=== PATIENT | male | born 1965 | race Caucasian/White ===

== ENCOUNTER 2024-08-16 08:53 | Outpatient (CLI) | payer OTHER, SELFPAY ==
[2024-08-16 09:04] LABS: Basophils Absolute Auto 0.09 K/mm3 (0.00-0.10); Basophils Percent Auto 1.8 % (0.0-1.0); Eosinophils Absolute Auto 0.11 K/mm3 (0.02-0.50); Eosinophils Percent Auto 2.2 % (1.0-6.0); Hematocrit 43.9 % (40.0-54.0); Hemoglobin 14.7 g/dL (14.0-18.0); Immature Granulocyte Absolute 0.01 K/mm3 (0.00-0.00); Immature Granulocyte Percent A 0.2 % (0.0-0.0); Lymphocytes Absolute Auto 1.28 K/mm3 (1.10-4.50); Lymphocytes Percent Auto 25.9 % (18.0-42.0); Mean Corpuscular HGB Conc 33.5 g/dL (32-36); Mean Corpuscular Hemoglobin 31.5 pg (27.0-31.0); Mean Corpuscular Volume 94.2 fL (78.0-102.0); Mean Platelet Volume 10.3 fl (8.7-11.0); Monocytes Absolute Auto 0.59 K/mm3 (0.10-0.90); Monocytes Percent Auto 11.9 % (2.0-11.0); Neutrophils Absolute Auto 2.87 K/mm3 (1.70-7.20); Platelet Count Result 167 K/mm3 (150-420); Red Blood Count 4.66 M/mm3 (4.70-6.10); Red Cell Distribution Width 12.3 % (11.6-14.4)
[2024-08-16 09:45] LABS: Alanine Aminotransferase 33 U/L (16-63); Albumin Level 3.7 g/dL (3.4-5.0); Alkaline Phosphatase 83 U/L (46-116); Anion Gap 5 mmol/L (4-12); Aspartate Amino Transferase 20 U/L (15-37); Bilirubin,Total 0.6 mg/dL (0.00-1.00); Blood Urea Nitrogen 18 mg/dL (7-18); Calcium 8.8 mg/dL (8.5-10.1); Carbon Dioxide 32 mmol/L (21-32); Chloride 106 mmol/L (98-108); Cholesterol 175 mg/dL (0-200); Estimated Glomerular Filt Rate > 60; Glucose 96 mg/dL (70-99); HDL Direct 65 mg/dL (40-60); LDL Cholesterol Calculated 88 mg/dL (<130); Osmolality Calculated 297 mOsm/kg (285-295); Potassium 4.3 mmol/L (3.5-5.1); Sodium 143 mmol/L (136-145); Total Protein 6.7 g/dL (6.4-8.2); Triglycerides 110 mg/dL (0-150)
[2024-08-16 10:10] LABS: Thyroid Stimulating Hormone Reflex 1.88 u/IU/mL (0.36-3.74)
== END 2024-08-16 08:54 | disposition home or self-care (01) ==
PROVIDERS: PCP Family Medicine; Visit Provider Family Medicine
DX: Z00.00 Encounter for general adult medical examination without abnormal findings (principal); E03.9 Hypothyroidism, unspecified
CPT/HCPCS: 36415; 80053; 80061; 84443; 85025

== ENCOUNTER 2024-09-18 12:45 | Outpatient (NON) | payer OTHER, SELFPAY | END 2024-09-18 12:46 | disposition home or self-care (01) | PROVIDERS: Visit Provider Family Medicine | DX: L82.1 Other seborrheic keratosis (principal) | CPT/HCPCS: 88305 ==

== ENCOUNTER 2024-10-04 01:22 | Day surgery (SDC) | payer OTHER, SELFPAY ==
[2024-09-24 13:16] VITALS: BMI 25.6
[2024-10-04 06:41] VITALS: BP 132/82; PULSE 72; RESP 16; TEMP 36.4; O2SAT 100
[2024-10-04] MEDS: LACTATED RINGERS 1,000 ML 150 ML IV CONT (06:49)
--- NOTE | 2024-10-04 07:30 | P.PNAN_ITS ---
Anes - Initial Pre Proc Eval Procedure: Operation Date: 10/04/24 08:00 Proposed Procedures p Screening Colonoscopy - Denver Wagoner DO Date/Time: 10/04/24 07:30 Surgeon: Denver Wagoner DO Pre Op Diagnosis: screening for malignant neoplasm of colon Patient Data Age: 59 Gender: M Height: 1.91 m Weight: 91.8 kg Last Vital Signs Temp 36.4 C L 10/04/24 06:41 Pulse 72 10/04/24 06:41 Resp 16 10/04/24 06:41 BP 132/82 10/04/24 06:41 Pulse Ox 100 10/04/24 06:41 O2 Del Method Room Air 10/04/24 06:41 Allergies Allergy/AdvReac Type Severity Reaction Status Date / Time Penicillins Allergy Mild Hives Verified 09/24/24 13:15 Home Medications ?Medication ?Instructions ?Recorded ?Confirmed ?Type No Home Medications 08/16/24 09/24/24 History Patient hx anesthesia problems: none Family hx anesthesia problems: none Results Review: All pre-operative results and documents have been reviewed as part of the pre- operative evaluation. FOR[facility]LY [facility], [facility] Surgical History Surgical History (Updated 10/04/24 @ 07:30 by Efren Vanessa MD) H/O colonoscopy Family History Family History Father Lung cancer Grandparent Heart attack Grandparent Cerebrovascular accident Social History Social History Smoking status: Never smoker Tobacco type: smokeless tobacco Smokeless tobacco user: chewing tobacco Alcohol intake: current Substance use: never Substance use type: does not use Do You Feel Safe in your Home?: Yes Lack of Transportation: No Lack of Food: Never True Current Housing: I Have Housing Concerned About Future Housing: No Difficulty Paying Gas/Electric Bills: No Difficulty Paying for Meds: No Currently Unemployed: No Education: Bachelor's Degree Difficulty w/ Childcare or Family Care: No Anes - Eval Final PreProcedure Day of Procedure 10/04/24 07:30 Patient weight: normal Heart: regular rate and rhythm Lungs: clear to auscultation Airway: Mallampati scale class II Neurological: alert and oriented Last oral intake: >/= 8 hours ASA classification: I Emergent: no Anesthetic plan: proceed Anesthesia type and monitoring: general GIVS and standard monitoring Results Review: All pre-operative results and documents have been reviewed as part of the pre- operative evaluation. Informed Consent: The patient's anesthetic plan and its attendant risks and benefits were discussed with the patient/family/POA. Questions were solicited and answers provided to the satisfaction of the patient/family/POA.
--- NOTE | 2024-10-04 07:47 | PM.IMHP ---
H&P: HPI History of Present Illness Date/Time: 10/04/24 07:47 Chief Complaint: Screening for colorectal cancer Narrative: this is a 59-year-old man who presents for colonoscopy. His last colonoscopy was 10 years ago and was normal. He denies any hematochezia or melena. He denies any family history of colon cancer. Review of Systems Review of Systems: All systems reviewed & are unremarkable except as noted in HPI and below Constitutional: Constitutional: Denies chills, Denies fever(s), Denies headache(s) and Denies weight loss Eyes: Eyes: Denies change in vision ENT: Denies dizziness, Denies headache(s), Denies neck mass and Denies throat swelling Cardiovascular: Cardiovascular: Denies chest pain, Denies lightheadedness and Denies dyspnea Respiratory: Respiratory: Denies cough, Denies dyspnea and Denies wheezing Gastrointestinal: Gastrointestinal: Denies abdominal pain, Denies change in bowel habits, Denies nausea and Denies vomiting Genitourinary: Genitourinary: Denies hematuria and Denies dysuria Musculoskeletal: Musculoskeletal: Reports as per HPI Integumentary/Breasts: Skin/Breast: Reports as per HPI Neurologic: Denies dizziness and Denies headache(s) Allergic/Immunologic: Allergic/Immunologic: Denies throat swelling and Denies wheezing PMF Surgical History Surgical History (Updated 10/04/24 @ 07:30 by Efren Vanessa MD) H/O colonoscopy Family History Family History Father Lung cancer Grandparent Heart attack Grandparent Cerebrovascular accident Social History Social History Smoking status: Never smoker Tobacco type: smokeless tobacco Smokeless tobacco user: chewing tobacco Alcohol intake: current Substance use: never Substance use type: does not use Do You Feel Safe in your Home?: Yes Lack of Transportation: No Lack of Food: Never True Current Housing: I Have Housing Concerned About Future Housing: No Difficulty Paying Gas/Electric Bills: No Difficulty Paying for Meds: No Currently Unemployed: No Education: Bachelor's Degree Difficulty w/ Childcare or Family Care: No Meds Home Medications and Allergies Home Medications ?Medication ?Instructions ?Recorded ?Confirmed ?Type No Home Medications 08/16/24 09/24/24 History Allergies Allergy/AdvReac Type Severity Reaction Status Date / Time Penicillins Allergy Mild Hives Verified 09/24/24 13:15 Vital Signs Vital Signs - 24 hr 10/04/24 06:41 Temperature 97.5 F L Pulse Rate 72 Respiratory Rate 16 Blood Pressure 132/82 Pulse Oximetry 100 Oxygen Delivery Room Air Exam Const: General: no acute distress and alert Orientation/consciousness: patient oriented x3 HENMT: Head: normocephalic and atraumatic Ears: hearing grossly normal bilaterally Face/Nose/Sinus: Normal nares present Mouth: Yes Normal oral and palatal mucosa present Eyes: Periorbital: periorbital findings normal Sclera: sclerae normal EOM: EOMs intact bilaterally Neck: Neck: normal visual inspection, no lymphadenopathy and trachea midline Chest: Chest palpation & inspection: normal inspection of the chest Resp: Effort & Inspection: normal respiratory effort Auscultation: clear to auscultation bilaterally Cardio: Jugular venous distension: no JVD Rate: regular rate Rhythm: regular rhythm Heart sounds: S1 normal heart sound present and S2 normal heart sound present Peripheral pulses: Peripheral pulses 2+ throughout GI: Inspection: normal to inspection GI Palp: Yes Soft to palpation, No Tenderness to palpation present (GI), No Guarding due to palpation present (GI) and No Rebound tenderness present Percussion: Yes normal to percussion Auscultation: normal bowel sounds : General: Yes no CVA tenderness Back/Spine/Pelvis: Back: no CVA tenderness Neuro: General: patient oriented x3, no focal motor deficits and CN's II-XI intact bilaterally Cognition (Neuro): normal cognition Speech: normal speech Motor exam (neuro): 5/5 motor strength present throughout Extrem: General: capillary refill normal and no clubbing, cyanosis or edema Assessment and Plan Assessment and plan (1) Screening for colorectal cancer: Code(s): Z12.11 - Encounter for screening for malignant neoplasm of colon; Z12.12 - Encounter for screening for malignant neoplasm of rectum Status: Acute Assessment and Plan: I have recommended colonoscopy. I have discussed the procedure, risks, benefits, and alternatives. Questions were answered. Patient is agreeable to proceed.
[2024-10-04 08:09] VITALS: BP 130/87; PULSE 68; RESP 19; O2SAT 99
[2024-10-04 08:19] VITALS: BP 130/89; PULSE 66; RESP 12; O2SAT 100
[2024-10-04 08:29] VITALS: BP 133/88; PULSE 61; RESP 20; O2SAT 100
== END 2024-10-04 08:39 | disposition home or self-care (01) ==
PROVIDERS: PCP Family Medicine; Visit Provider Surgery
PROC: 0DJD8ZZ Inspection of Lower Intestinal Tract, Via Natural or Artificial Opening Endoscopic (ICD-10-PCS; CPT 45378; principal; 2024-10-04 08:00)
DX: Z12.11 Encounter for screening for malignant neoplasm of colon (principal); K57.30 Diverticulosis of large intestine without perforation or abscess without bleeding; F17.220 Nicotine dependence, chewing tobacco, uncomplicated
CPT/HCPCS: 45378; J2704; J7120